=== PATIENT | female | born 2000 | race Caucasian/White ===

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

== ENCOUNTER → 2019-05-09 10:25 | Outpatient (CLI) | payer BC, SELFPAY ==
--- NOTE | 2019-05-09 10:32 | US_ITS ---
PROCEDURE: US OB TRANSVAGINAL CLINICAL INDICATION: US OB Dates COMPARISON: No exams were available for comparison FINDINGS: An intrauterine gestational sac is present with a pole with a crown-rump length of 1.43cm correlating to gestational age of 7weeks 6days. heart tones are present with an FHR of 149bpm. Yolk sac is noted. Unremarkable adnexa IMPRESSION: Live IUP weeks 7 weeks 6 days Estimated due date by Ultrasound is 12/20/2019 Dictated by: Gabo Acosta MD 05/09/2019 18:14 Electronically signed by Gabo Acosta MD in [place] 05/09/2019 18:14
== END ==
PROVIDERS: PCP Family Medicine; Visit Provider Obstetrics & Gynecology
DX: O26.841 Uterine size-date discrepancy, first trimester (principal); Z34.90 Encounter for supervision of normal pregnancy, unspecified, unspecified trimester
CPT/HCPCS: 36415; 76817; 84702; 85025; 86592; 86703; 86762; 86850; 87340; 87380; G0432

== ENCOUNTER → 2019-05-09 10:41 | Outpatient (CLI) | payer BC, SELFPAY ==
[2019-05-09 11:02] LABS: Basophils % 0.4 % (0.1-2.0); Eosinophils # 0.1 K/mm3 (0.0-0.4); Eosinophils % 0.8 % (0.1-12.0); Hematocrit 40.3 % (37.0-47.0); Hemoglobin 13.4 g/dL (12.2-16.2); Lymphocytes # 1.5 K/mm3 (0.7-4.5); Lymphocytes % 19.7 % (10-50); Mean Corpuscular HGB Conc 33.1 g/dL (31.8-35.4); Mean Corpuscular Hemoglobin 30.4 pg (27.0-31.2); Mean Corpuscular Volume 91.7 fl (81-99); Mean Platelet Volume 7.7 fl (7.4-10.4); Monocytes # 0.4 K/mm3 (0.1-1.0); Monocytes % 4.5 % (1.7-9.3); Neutrophils # 5.8 K/mm3 (1.8-7.8); Neutrophils % 74.8 % (37.0-80.0); Platelet Count 292 K/mm3 (142-424); Red Cell Distribution Width 12.7 % (11.5-17.5); White Blood Count 7.7 K/mm3 (4.5-13.0)
[2019-05-10 11:05] LABS: HIV Screen 4th Generation wRfx Non Reactive (Non Reactive); Hepatitis B Surface Antigen Negative (Negative); Hepatitis C Antibody <0.1 s/co ratio (0.0-0.9); Rubella Antibodies, IgG 2.11 index (Immune >0.99)
[2019-05-10 16:19] LABS: Rapid Plasma Reagin Ab Titer Non Reactive (NonRea<1:1)
== END ==
PROVIDERS: Visit Provider Obstetrics & Gynecology
DX: Z34.90 Encounter for supervision of normal pregnancy, unspecified, unspecified trimester (principal)
CPT/HCPCS: 36415; 84702; 85025; 86592; 86703; 86762; 86850; 87340; 87380; G0432

== ENCOUNTER → 2019-05-28 16:42 | Outpatient (CLI) | payer BC, SELFPAY ==
[2019-05-30 23:43] LABS: Neisseria gonorrhoeae, NAA Negative (Negative)
== END ==
PROVIDERS: Visit Provider Obstetrics & Gynecology
DX: Z34.90 Encounter for supervision of normal pregnancy, unspecified, unspecified trimester (principal)
CPT/HCPCS: 87491; 87591

== ENCOUNTER 2019-07-27 10:37 | Emergency (ER) | payer BC, MEDICAID, SELFPAY ==
[2019-07-27 10:38] VITALS: BP 140/87; PULSE 84; RESP 20; TEMP 36.8; O2SAT 100; BMI 16.9
--- NOTE | 2019-07-27 10:56 | US_ITS ---
PROCEDURE: US OB >= 14 WEEKS FETUS Patient Age:18Y CLINICAL INDICATION: BLEEDING, 19 WEEKS BLEEDING, 19 WEEKS bleeding with COMPARISON: No exams were available for comparison FINDINGS: Posterior placenta.. Internal os well visualized-with clearly no previa. No abruption identified on submitted images Cervix appears long and closed measuring at least 4 cm length. (Average of obtained cervical measurements = 4.6 cm.) The Single viable intrauterine gestation.. movement and activity observed. Breech position Amniotic fluid is within normal limits. Three-vessel cord identified. . Spine survey are unremarkable at this early juncture.. Limbs identified. Cine loop of what appears to be four-chamber heart included. Stomach and bladder identified-unremarkable. Diaphragm unremarkable. Limited survey of the abdomen including region kidneys unremarkable on this early study as well. Appears to be a appropriate growth adnexa: Unremarkable Average ultrasound age =19 week 2 day. Gestational age 19 week 2. As based on LMP of 03/14/2019 AG based on ultrasound = 12/19/2019 Heart rate = 147 BPM.. BPD = 4.4 2 cm = 19 week 3 day. OFD = 5.74 cm = 19 weeks 6 day HC = 16.09 cm = 19 weeks 0 days AC = 14.02 cm = 19 week 3 day FL = 2.98 = 19 week 2 day Growth Percentile= 44% Heart Rate = 147 HC/AC is 1.15 CI is 77 percent FL/BPD is 67 percent FL/AC is 21 percent IMPRESSION: Single active viable intrauterine gestation. Breech position. . 19 week 2 day average ultrasound age Estimated due date by Ultrasound is 12/19/2019 . Posterior placenta. No previa. No abruption evident. Cervix long and closed . Limited anatomic survey at this early juncture unremarkable. Dictated by: Ean Steele MD 07/27/2019 13:14 Electronically signed by Ean Steele MD in [place] 07/27/2019 13:14
--- NOTE | 2019-07-27 11:00 | PC.NURSE ---
HEART TONES 144
[2019-07-27 11:02] LABS: Basophils # 0.1 K/mm3 (0-0.2); Eosinophils # 0.3 K/mm3 (0.0-0.4); Eosinophils % 2.5 % (0.1-12.0); Hematocrit 35.2 % (37.0-47.0); Hemoglobin 12.1 g/dL (12.2-16.2); Lymphocytes # 2.5 K/mm3 (0.7-4.5); Lymphocytes % 23.7 % (10-50); Mean Corpuscular HGB Conc 34.3 g/dL (31.8-35.4); Mean Corpuscular Hemoglobin 31.6 pg (27.0-31.2); Mean Corpuscular Volume 92.2 fl (81-99); Microscopic, Urine URINE MICROSCOPIC (MICROSCOPIC); Monocytes # 0.5 K/mm3 (0.1-1.0); Monocytes % 4.9 % (1.7-9.3); Neutrophils # 7.2 K/mm3 (1.8-7.8); Neutrophils % 67.9 % (37.0-80.0); Platelet Count 304 K/mm3 (142-424); Red Blood Count 3.82 M/mm3 (4.20-5.40); Red Cell Distribution Width 12.9 % (11.5-17.5); White Blood Count 10.5 K/mm3 (4.5-13.0)
[2019-07-27 11:03] LABS: Appearance,Urine CLEAR (Clear); Bilirubin,Urine Negative (Negative); Blood, Urine 3+ (Negative); Color,Urine YELLOW (Yellow); Glucose,Urine (UA) Negative (Negative); Ketones,Urine TRACE (Negative); Leukocyte Esterase,Urine 1+ (Negative); Nitrate,Urine POSITIVE (Negative); PH,Urine 6.5 (5.0-8.5); Protein,Urine 2+ (Negative)
[2019-07-27 11:05] LABS: Urine Pregnancy, HCG Qual. Positive (Negative)
[2019-07-27 11:07] LABS: Chloride 102 mmol/L (98-107)
[2019-07-27 11:08] LABS: Potassium 3.6 mmoL/L (3.5-5.1); Sodium 136 mmol/L (136-145)
[2019-07-27 11:10] LABS: Alanine Aminotransferase 16 U/L (12-78); Aspartate Amino Transferase 35 U/L (14-36); Blood Urea Nitrogen 9 mg/dl (7-17); Creatinine Clearance Estimated 176 mL/min (50-200); Estimated Glomerular Filt Rate 159 ml/min (>60); GFR (African American) 192 ML/MIN (>60)
[2019-07-27 11:11] LABS: Albumin Level 4.2 g/dl (3.5-5.0); Albumin/Globulin Ratio 1.4 (1.1-1.8); Alkaline Phosphatase 75 U/L (38-126); Anion Gap 11.6 mEq/L (5-15); Bilirubin,Total 0.7 mg/dl (0.2-1.3); Calcium 9.7 mg/dl (8.4-10.2); Carbon Dioxide 26 mmol/L (22.0-30.0); Globulin 2.9 g/dL (1.3-3.2); Glucose 92 mg/dl (74-100); Total Protein,Serum 7.1 g/dl (6.3-8.2)
[2019-07-27 11:17] LABS: Amorphous Sediment,Urine 1+ /lpf; Bacteria,Urine 1+ /lpf; RBC,Urine TNTC #/hpf (0-3)
--- NOTE | 2019-07-27 11:41 | PC.NURSE ---
CALLED RAD FOR UPDATE ON WHEN PIGSKIN TRIMMER US TECH WOULD BE HERE
--- NOTE | 2019-07-27 11:57 | PC.NURSE ---
PT TO US
--- NOTE | 2019-07-27 12:57 | HMH.EDUROGF ---
ED Disposition Clinical Impression: UTI (urinary tract infection) during Disposition: Home, Self-Care Condition on Discharge: Good Instructions: DI for Vaginal Bleeding Additional Instructions: Please return to the emergency department if any more complications. Prescriptions: Nitrofurantoin Monohyd/M-Cryst [Macrobid 100 mg Capsule] 100 mg PO BID 10 Days #20 cap Transmission Status: Sent to [facility] Referrals: Leland Perez MD [Primary Care Provider] - - Critical Care Critical Care Time: No Attestation: On 07/27/19, the high probability of a clinically significant, sudden or life threatening deterioration of the following system(s) required my full and direct attention, intervention and personal management. The time I documented below is in addition to time spent performing reported procedures but includes the following listed in this critical care notation. Medical Decision Making - Medical Records Medical records reviewed: Yes: I reviewed the patient's medical records. - Tim Inquiry Pt receiving controlled substance: No Vital Signs: 07/27/19 10:38 Temperature 98.2 F Temperature Source Oral Pulse Rate [Right] 84 Respiratory Rate 20 Blood Pressure [Right Arm] 140/87 Blood Pressure Mean [Right Arm] 104 02 Sat by Pulse Oximetry 100 - Lab Data Lab results reviewed: Yes: I reviewed the patient's lab results. Lab Results 07/27/19 10:50: WBC 10.5, RBC 3.82 L, Hgb 12.1 L, Hct 35.2 L, MCV 92.2, MCH 31.6 H, MCHC 34.3, RDW 12.9, Plt Count 304, MPV 8.0, Neut % (Auto) 67.9, Lymph % (Auto) 23.7, [place] % (Auto) 4.9, Eos % (Auto) 2.5, Baso % (Auto) 1.0, Neut # (Auto) 7.2, Lymph # (Auto) 2.5, [place] # (Auto) 0.5, Eos # (Auto) 0.3, Baso # (Auto) 0.1 07/27/19 10:50: Sodium 136, Potassium 3.6, Chloride 102, Carbon Dioxide 26, Anion Gap 11.6, BUN 9, Creatinine 0.50 L, Estimated Creat Clear 176, Estimated GFR 159, Est GFR ( Amer) 192, Glucose 92, Calcium 9.7, Total Bilirubin 0.7, AST 35, ALT 16, Alkaline Phosphatase 75, Total Protein 7.1, Albumin 4.2, Globulin 2.9, Albumin/Globulin Ratio 1.4 07/27/19 10:50: Urine Color Yellow, Urine Appearance Clear, Urine pH 6.5, Ur Specific [place] 1.020, Urine Protein 2+, Urine Glucose (UA) Negative, Urine Ketones Trace, Urine Blood 3+, Urine Nitrate Positive, Urine Bilirubin Negative, Urine Urobilinogen 1.0, Ur Leukocyte Esterase 1+ A, Urine RBC Tntc, Urine WBC 10-20, Ur Squamous Epith Cells 10-20, Ur Transition Epith Cell 3-5, Amorphous Sediment 1+, Urine Bacteria 1+ 07/27/19 10:50: Urine HCG, Qual Positive 07/27/19 10:50: HCG, Quant [id number] H Result diagrams: 07/27/19 10:50 07/27/19 10:50 Orders (Tests/Meds): ORDERS Category Date Time Status Urine Culture Stat Micro 07/27/19 10:50 Received US OB >= 14 weeks Fetus Stat Ultrasound 07/27/19 10:56 Taken - US Data US Images: Abdomen, Pelvis Preliminary Findings: Normal/NAD (Healthy intrauterine with good JONY ratios heart tones were 146.) Female Urogenital HPI - General Chief complaint: Vaginal Bleeding Stated complaint: 19 weeks bleeding Time Seen by Provider: 07/27/19 12:00 Mode of Arrival: Ambulatory Source of Information: Patient Limitations: No Limitations Description of Symptoms (Recalled from ER Triage Doc. by RN): PT STATES SHE IS 19 WEEKS AND WHEN SHE WOKE UP THIS AM SHE URINATED AND NOTICED THE TOILET WAS FILLED WITH BLOOD, PT DENIES CRAMPING OR CLOTS IN THE BLOOD. DENIES FEVER, SOA, TRAVEL HX OR COUGH. - History of Present Illness HPI Narrative: 18-year-old female presents as a G1, P0 with some lower abdominal cramping and some bleeding at roughly 19 weeks. Patient states that she started bleeding today no clots but she had blood in her urine. She also complains of dysuria. She also states that she has had 2 other UTIs during this . Patient denies any loss of fluid patient also denies any overt passing of clots or excessive a
[2019-07-27 13:07] VITALS: BP 129/78; PULSE 82; RESP 16; TEMP 36.7; O2SAT 98
== END 2019-07-27 13:10 | disposition home or self-care (01) ==
PROVIDERS: Emergency Provider Family Medicine; PCP Family Medicine
DX: O23.12 Infections of bladder in pregnancy, second trimester (principal); Z3A.19 19 weeks gestation of pregnancy; F17.210 Nicotine dependence, cigarettes, uncomplicated
CPT/HCPCS: 76805; 80053; 81001; 81025; 84702; 85025; 87086; 99283

== ENCOUNTER 2020-04-03 10:42 | Emergency (ER) | payer BC, MEDICAID, SELFPAY ==
[2020-04-03 11:09] VITALS: BP 108/56; PULSE 88; RESP 18; O2SAT 99; BMI 28.3
--- NOTE | 2020-04-03 11:16 | HMH.EDUTC ---
[facility] [place] Disposition Clinical Impression: Exposure to COVID-19 virus Disposition: Home, Self-Care Condition on Discharge: Good Instructions: DI for COVID-19 (Suspected or Confirmed ), COVID-19: Testing and Tracing, Preventing the Spread of Coronavirus Discharge Instructions Additional Instructions: *Monitor Temp, Over the counter Motrin or Tylenol as directed/as needed Tylenol every 4 hours and Motrin every 6 hours (as long as your family doctor has told you that you can take it) for fever or pain. and straight to ER if unable to lower temp less than 101.0 after medication given Follow up IMMEDIATELY for new or worsening symptoms or no Noticeable improvement over the next 48-72 hours. 911 for difficulty breathing or swallowing You were tested for today for COVID19 your test result should be back in the next 24-48 hours, you may call to the [facility] to see if your test results are back in the next 48 hours [phone] [facility] hours are 9am-9pm You was given a handout with instructions for Self Quarantine and Self isolation for while you wait on test results and what to do if they are positive If you are positive the Health Dept will be contacting you also Referrals: Leland Perez MD [Primary Care Provider] - As needed Time of Disposition: 11:18 Medical Decision Making - Tim Inquiry Pt receiving controlled substance: No Tim was queried for this patient: No Vital Signs: 04/03/20 11:09 Pulse Rate [Radial] 88 Respiratory Rate 18 Blood Pressure [Right Arm] 108/56 L Blood Pressure Mean [Right Arm] 73 Blood Pressure Source [Right Arm] Automatic Cuff Blood Pressure Position [Right Arm] Sitting 02 Sat by Pulse Oximetry 99 Oxygen Delivery Method Room Air Orders (Tests/Meds): ORDERS Category Date Time Status Covid-19 Nasal PCR ([facility]) Routine Lab 04/03/20 10:53 Ordered [facility] [place] HPI - General Stated complaint: COVID TEST Time Seen by Provider: 04/03/20 11:17 Mode of Arrival: Ambulatory Source of Information: Patient Limitations: No Limitations Description of Symptoms (Recalled from Triage Doc. by RN): wants covid test no symptoms HEENT Symptoms (Recalled from RN notes): No Resp Symptoms (Recalled from RN notes): No Skin Symptoms (Recalled from RN notes): No MS Symptoms (Recalled from RN notes): No Functional Status (Recalled from RN notes): wnl - History of Present Illness Provider Complaint: Patient states that she was recently around someone in the family that tested positive for COVID State that she isnt having any symptoms but wanted to get tested - Related Data Home Medications Medication Instructions Recorded Confirmed prenat.vits,wan,[id number]-[id number] 1 tab PO DAILY 05/28/19 05/28/19 Previous Rx's Medication Instructions Recorded ondansetron HCl 4 mg tablet 4 mg PO .every 4 to 6 hours #20 tab 05/28/19 Nitrofurantoin Monohyd/M-Cryst 100 mg PO BID 10 Days #20 cap 07/27/19 [Macrobid 100 mg Capsule] Allergies Allergy/AdvReac Type Severity Reaction Status Date / Time No Known Allergies Allergy Verified 05/28/19 15:43 - Worker's Comp Is this a Worker's Comp case?: No [facility] History - Hepatitis A Screen Drug use history?: No High risk sexual behaviors?: No History of sexually transmitted infection?: No Currently employed?: No Childcare worker?: No Do you have indoor plumbing?: Yes Do you have electricity?: Yes Attestation statement:: This patient has been screened for Hepatitis A risk factors. I have reviewed the patient's past medical history: Yes Other Surgeries: Yes: Appendectomy Amputation: No Fractures: No - Social History Smoking Status: Current every day smoker Tobacco Type: cigarettes # Packs/Day (cigarettes): 1 Alcohol Intake: never Substance Use Type: denies use Occupational Status: other Housing: house Family Hx:: Diabetes, Hypertension, Hyperlipidemia ROS Obtained: Yes All systems reviewed & no additional complaints, Yes Systems reviewed as appropriate &
[2020-04-03 11:25] VITALS: BP 108/56; PULSE 88; RESP 18; TEMP 36.6; O2SAT 99
--- NOTE | 2020-04-03 15:26 | PC.NURSE ---
Patient notified of positive COVID results. Educated on quarantine.
== END 2020-04-03 11:26 | disposition home or self-care (01) ==
PROVIDERS: Emergency Provider Nurse Practitioner; PCP Family Medicine
DX: U07.1 COVID-19 (principal); F17.210 Nicotine dependence, cigarettes, uncomplicated
CPT/HCPCS: 99201; U0003

== ENCOUNTER 2020-04-14 15:56 | Emergency (ER) | payer BC, MEDICAID, SELFPAY ==
[2020-04-14 15:57] VITALS: BP 127/56; PULSE 72; RESP 14; TEMP 37; O2SAT 98; BMI 28.3
--- NOTE | 2020-04-14 16:57 | HMH.EDUTC ---
[facility] [place] Disposition Clinical Impression: Exposure to COVID-19 virus Disposition: Home, Self-Care Condition on Discharge: Good Instructions: DI for COVID-19 (Suspected or Confirmed ), Preventing the Spread of Coronavirus Discharge Instructions Additional Instructions: Drink plenty of fluids. Take tylenol or ibuprofen for pain or fever. Take the medications as directed. Follow up with your regular doctor. GO TO THE ER FOR ANY WORSENING SYMPTOMS Referrals: Leland Perez MD [Primary Care Provider] - Time of Disposition: 16:58 Medical Decision Making - Medical Records Medical records reviewed: No: I reviewed the patient's medical records. - Tim Inquiry Pt receiving controlled substance: No Vital Signs: 04/14/20 15:57 04/14/20 17:04 Temperature 98.6 F 98.6 F Temperature Source Oral Oral Pulse Rate 72 Pulse Rate [Right] 72 Respiratory Rate 14 14 Blood Pressure 127/56 L Blood Pressure [Right Arm] 127/56 L Blood Pressure Mean [Right Arm] 79 02 Sat by Pulse Oximetry 98 Oxygen Delivery Method Room Air [facility] [place] HPI - General Stated complaint: COVID test;tested positive 2 weeks ago Time Seen by Provider: 04/14/20 16:57 Mode of Arrival: Ambulatory Source of Information: Patient Limitations: No Limitations Description of Symptoms (Recalled from Triage Doc. by RN): pt request COVID test pt has no symptoms HEENT Symptoms (Recalled from RN notes): No Resp Symptoms (Recalled from RN notes): No Skin Symptoms (Recalled from RN notes): No MS Symptoms (Recalled from RN notes): No Functional Status (Recalled from RN notes): wnl - History of Present Illness Provider Complaint: She is here to be retested for covid so she can go back to work. She had a positive covid test 2 weeks ago. - Related Data Home Medications Medication Instructions Recorded Confirmed prenat.vits,wan,[id number] 1 tab PO DAILY 05/28/19 05/28/19 Previous Rx's Medication Instructions Recorded ondansetron HCl 4 mg tablet 4 mg PO .every 4 to 6 hours #20 tab 05/28/19 Nitrofurantoin Monohyd/M-Cryst 100 mg PO BID 10 Days #20 cap 07/27/19 [Macrobid 100 mg Capsule] Allergies Allergy/AdvReac Type Severity Reaction Status Date / Time No Known Allergies Allergy Verified 05/28/19 15:43 - Worker's Comp Is this a Worker's Comp case?: No Is this an H Worker's Comp?: No Is this a [place] Worker's Comp?: No [facility] History - Hepatitis A Screen Drug use history?: No High risk sexual behaviors?: No History of sexually transmitted infection?: No Currently employed?: No Childcare worker?: No Do you have indoor plumbing?: Yes Do you have electricity?: Yes Attestation statement:: This patient has been screened for Hepatitis A risk factors. I have reviewed the patient's past medical history: Yes Other Surgeries: Yes: Appendectomy Amputation: No Fractures: No - Social History Smoking Status: Current every day smoker Tobacco Type: cigarettes # Packs/Day (cigarettes): 1 Alcohol Intake: never Substance Use Type: denies use Occupational Status: other Housing: house Family Hx:: Diabetes, Hypertension, Hyperlipidemia ROS Obtained: Yes All systems reviewed & no additional complaints - Constitutional Constitutional: Reports system reviewed and no additional complaints, except as docu - Eyes Eyes: Reports system reviewed and no additional complaints, except as docu - ENT Ears, Nose, Mouth, and Throat: Reports system reviewed and no additional complaints, except as docu - Cardiovascular Cardiovascular: Reports system reviewed and no additional complaints, except as docu - Respiratory Respiratory: Reports system reviewed and no additional complaints, except as docu - Gastrointestinal Gastrointestingal: Reports: system reviewed and no additional complaints, except as docu Physical Exam - General General appearance: alert, in no apparent distress - Head Head exam: atraumatic, normocephalic, nor
[2020-04-14 17:04] VITALS: BP 127/56; PULSE 72; RESP 14; TEMP 37; O2SAT 98
--- NOTE | 2020-04-14 20:47 | PC.NURSE ---
patient notified of positive covid results
== END 2020-04-14 17:10 | disposition home or self-care (01) ==
PROVIDERS: Emergency Provider Nurse Practitioner Family; PCP Family Medicine
DX: U07.1 COVID-19 (principal); F17.210 Nicotine dependence, cigarettes, uncomplicated
CPT/HCPCS: 99202; G0463; U0003

== ENCOUNTER 2023-01-02 20:39 | Emergency (ER) | payer BC, MEDICAID, SELFPAY ==
[2023-01-02 22:25] VITALS: BP 128/66; PULSE 62; RESP 15; TEMP 36.7; O2SAT 100; BMI 28.3
--- NOTE | 2023-01-02 22:29 | XR_ITS ---
PROCEDURE INFORMATION: Exam: XR Right Hand Exam date and time: 01/02/2023 11:00 PM Age: 22 years old Clinical indication: Fingers; Patient HX: Redness, swelling, pain to distal 3rd digit right hand; Additional info: Possible infected 3rd finger TECHNIQUE: Imaging protocol: Radiologic exam of the right hand. Views: 3 or more views. COMPARISON: No relevant prior studies available. FINDINGS: Bones/joints: Normal. No acute fracture identified. No other acute bony abnormality. Soft tissues: Normal. IMPRESSION: No acute findings.
--- NOTE | 2023-01-02 23:04 | HMH.EDGENADL ---
Discharge Plan Disposition Patient Disposition: Home, Self-Care Condition: Good Prescriptions Prescriptions: New sulfamethoxazole-trimethoprim 800-160 mg tablet 1 tab PO BID Qty: 14 0RF No Action prenat.vits,wan,[id number] Tablet 1 tab PO DAILY ondansetron HCl [Zofran] 4 mg tablet 4 mg PO .every 4 to 6 hours Qty: 20 3RF nitrofurantoin monohyd/m-cryst 100 MG capsule 100 mg PO BID 10 Days Qty: 20 0RF Referrals Follow up/Referrals: Provider,Referral, MD [Primary Care Provider] - See instructions Activity Restrictions/Add. Instructions Additional Instructions/Restrictions: You were evaluated in the emergency department today for middle finger swelling and redness. I performed incision and drainage of a paronychia abscess. You have been prescribed Bactrim for treatment of the abscess and surrounding cellulitis. Keep the wound clean and dry. Soak as directed with water in the provided soap. You can also use warm water, table salt, and discharge to urgent. Soak it for 20 minutes at least 2-3 times daily. Take the prescribed antibiotics as directed, do not skip doses, do not stop taking it early. Keep the finger wrapped and protected while working. 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 Follow-up with your primary care physician for reevaluation in 2 to 3 days. Return to the emergency department with new or worsening symptoms. Clinical Impressions Clinical Impression: Paronychia Instructions Patient Instructions: DI for Skin Abscess Discharge ED Provider: Pop Wilson General Adult HPI General Chief complaint: Skin/Abscess/Foreign Body Stated complaint: RT middle finger poss inf Time Seen by Provider: 01/02/23 22:53 Mode of Arrival: Family Vehicle Source of Information: Patient Limitations: No Limitations Description of Symptoms (Recalled from ER Triage Doc. by RN): 22 yo female presents with chief complaint of 3 rd digit, right hand possibly infected. 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 AROM/PROM +. PMS +. Afebrile. Last tetanus 2021. History of Present Illness HPI narrative: This otherwise healthy 22-year-old female presents to the emergency department with concerns of pain, swelling, redness of the right third finger. 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 She states around dinnertime it started to swell and has been persistently swollen and gotten worse. She states the pain is increasing as well. She states that she attempted to pull the skin away from the fingernail and some green pus came out. She has some pain of the finger but primarily the pain is next to the fingernail. Related Data Home Medications Medication Instructions Recorded Confirmed prenat.vits,wan,ela-[id number] 1 tab PO DAILY 05/28/19 05/28/19 Previous Rx's Medication Instructions Recorded ondansetron HCl 4 mg tablet 4 mg PO .every 4 to 6 hours #20 05/28/19 (Zofran) tabs nitrofurantoin 100 mg PO BID 10 days #20 caps 07/27/19 monohydrate/macrocrystals 100 mg capsule sulfamethoxazole 800 1 tab PO BID #14 tabs 01/03/ mg-trimethoprim 160 mg tablet Allergies Allergy/AdvReac Type Severity Reaction Status Date / Time No Known Allergies Allergy Verified 05/28/19 15:43 [facility] Disclaimer: The information contained in this section may have been updated after the patient was seen, as this information can be updated by other users. Social History Smoking Status: Unknown if ever smoked alcohol intake: never substance use type: denies use current occupational status: other Travel in the last 8 weeks: None housing: house ROS Obtained: Yes All systems reviewed & no additional complaints except as documented Constitutional Constitutional: Denies chills, Denies fever(s), Denies headache(s) and Denies weakness Eyes E
--- NOTE | 2023-01-02 23:48 | PC.NURSE ---
consent obtained for I & D right third digit
[2023-01-03 01:20] VITALS: BP 120/76; PULSE 66; RESP 16; TEMP 36.8
--- NOTE | 2023-01-03 01:25 | PC.NURSE ---
DISCUSSED WOUND CARE WITH PATIENT. PT VERBALIZED ACKNOWLEDGMENT TO REFERENCE INVESTIGATOR SULF ATB'S AND CARE FOR FINGER OVER COMING DAYS. 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
== END 2023-01-03 01:26 | disposition home or self-care (01) ==
PROVIDERS: Emergency Provider Emergency Medicine
DX: L03.011 Cellulitis of right finger (principal)
CPT/HCPCS: 10060; 73130; 99283